=== PATIENT | male | born 1965 | race Caucasian/White ===

== ENCOUNTER 2023-01-11 02:03 | Emergency (ER) | payer OTHER ==
[~2023-01-11] VITALS: Ht 177.8 cm; Wt 95.0 kg
[2023-01-11 02:07] VITALS: TEMP 98.5
[2023-01-11 03:02] LABS: BASOPHILS % (AUTO) 0.8 % (0.0-2.0); EOSINOPHILS % (AUTO) 2.8 % (1.0-6.0); HEMATOCRIT 40.4 % (41-53); HEMOGLOBIN 13.6 g/dL (13.5-17.5); LYMPHOCYTES # (AUTO) 1.3 K/uL (1.0-4.8); LYMPHOCYTES % (AUTO) 16.8 % (22.0-44.0); MEAN CORPUSCULAR HEMOGLOBIN 31.3 pg (26.0-34.0); MEAN CORPUSCULAR HGB CONC 33.7 G/dL (31.0-37.0); MEAN CORPUSCULAR VOLUME 93 fL (80-100); MONOCYTES # (AUTO) 0.6 K/uL (0.1-1.0); MONOCYTES % (AUTO) 8.5 % (2.0-9.0); NEUTROPHILS # (AUTO) 5.4 K/uL (1.8-7.7); NEUTROPHILS % (AUTO) 71.1 % (40.0-70.0); PLATELET COUNT (AUTO) 195 K/uL (150-450); RED BLOOD CELL COUNT(AUTO) 4.36 MIL/uL (4.50-5.90); WHITE BLOOD COUNT (AUTO) 7.6 K/uL (4.5-11.0)
[2023-01-11 03:07] VITALS: BP 114/64; PULSE 65; RESP 16
[2023-01-11 03:11] LABS: CALCIUM, TOTAL 8.9 mg/dL (8.8-10.5); CREATININE 1.38 mg/dL (0.60-1.30); POTASSIUM 4.5 mmol/L (3.5-5.1)
[2023-01-11 03:17] LABS: ALBUMIN 2.2 g/dL (3.4-5.0); BILIRUBIN,TOTAL 0.8 mg/dL (0.1-1.0); TOTAL PROTEIN, SERUM 6.2 g/dL (6.4-8.2)
[2023-01-11 03:19] LABS: TROPONIN I-HIGH SENSITIVITY 23 ng/L (<76)
[2023-01-11 04:10] LABS: MAGNESIUM 2.1 mg/dL (1.80-2.40)
== END 2023-01-11 04:19 | disposition home or self-care (01) ==
LOC: EMS 02:05
DX: I48.91 Unspecified atrial fibrillation (principal)
CPT/HCPCS: 71045; 80053; 82550; 83735; 83880; 84484; 85025; 93005; 99285; 36415-L1; 36415-TC

== ENCOUNTER 2023-09-08 04:01 | Inpatient (IN) | payer OTHER ==
[~2023-09-08] VITALS: Ht 177.8 cm; Wt 136.4 kg
[2023-09-08 06:20] LABS: BASOPHILS % (AUTO) 0.5 % (0.0-2.0); EOSINOPHILS % (AUTO) 2.1 % (1.0-6.0); HEMOGLOBIN 10.9 g/dL (13.5-17.5); LYMPHOCYTES # (AUTO) 1.2 K/uL (1.0-4.8); LYMPHOCYTES % (AUTO) 10.9 % (22.0-44.0); MEAN CORPUSCULAR HEMOGLOBIN 29.2 pg (26.0-34.0); MEAN CORPUSCULAR HGB CONC 32.9 G/dL (31.0-37.0); MEAN CORPUSCULAR VOLUME 89 fL (80-100); MONOCYTES # (AUTO) 0.7 K/uL (0.1-1.0); MONOCYTES % (AUTO) 6.6 % (2.0-9.0); NEUTROPHILS # (AUTO) 9.1 K/uL (1.8-7.7); NEUTROPHILS % (AUTO) 79.9 % (40.0-70.0); PLATELET COUNT (AUTO) 229 K/uL (150-450); RED BLOOD CELL COUNT(AUTO) 3.73 MIL/uL (4.50-5.90); RED CELL DISTRIBUTION WIDTH 13.7 % (11.5-14.5); WHITE BLOOD COUNT (AUTO) 11.4 K/uL (4.5-11.0)
[2023-09-08] MEDS: ONDANSETRON HCL 4 MG/2 ML VIAL IVP ONE (07:11)
[2023-09-08] MEDS: MORPHINE SULFATE 4 MG/ML SYRINGE IVP ONE (07:11)
[2023-09-08 07:32] LABS: ANION GAP 4 mmol/L (8-16); CALCIUM, TOTAL 8.3 mg/dL (8.8-10.5); CARBON DIOXIDE 26 mmol/L (22-29); CHLORIDE 108 mmol/L (98-107); CREATININE 1.39 mg/dL (0.60-1.30); GLOMERULAR FILTR. RATE CALC 53 mL/min (>60); GLUCOSE,RANDOM 93 mg/dL (70-110); POTASSIUM 4.3 mmol/L (3.5-5.1); SODIUM SERUM 138 mmol/L (136-145); UREA NITROGEN, BLOOD 27 mg/dL (7-18)
[2023-09-08 08:14] LABS: PROTHROMBIN TIME 10.9 SEC (9.4-11.6)
[2023-09-08] MEDS: VANCOMYCIN 1.75GM/WATER(PEG) 350 ML IV ONE (09:35)
[2023-09-08 12:34] VITALS: BP 135/99; PULSE 113; RESP 18; TEMP 98
[2023-09-08] MEDS ORDERED: IPRATROPIUM BROMIDE 0.5 MG/2.5 ML NEB SOLUTION NEB PRN (14:15)
[2023-09-08] MEDS ORDERED: ONDANSETRON HCL 4 MG/2 ML VIAL IVP PRN (14:15)
[2023-09-08] MEDS ORDERED: BISACODYL 10 MG RECTAL RECTAL SUPPOSITORY PR PRN (14:15)
[2023-09-08] MEDS ORDERED: MAGNESIUM HYDROXIDE SUSPENSION 30 ML UDCUP PO PRN (14:15)
[2023-09-08] MEDS ORDERED: ALBUTEROL SULFATE 2.5 MG/0.5 ML NEB SOLUTION NEB PRN (14:15)
[2023-09-08] MEDS ORDERED: MORPHINE SULFATE 2 MG/ML SYRINGE IVP PRN (14:15)
[2023-09-08] MEDS: HYDROCODONE/ACETAMINOPHEN 5-325 MG TABLET PO PRN (16:24)
[2023-09-08] MEDS: HEPARIN SODIUM,PORCINE 5,000 UNITS/ML VIAL SQ SCH (16:24)
[2023-09-08 19:19] VITALS: BP 121/83; PULSE 90; RESP 18; TEMP 98.5
[2023-09-09] MEDS ORDERED: APIX5TAB4 PO (04:05)
[2023-09-09] MEDS ORDERED: FLUT15.812 NASAL (04:05)
[2023-09-09 04:25] VITALS: BP 127/91; PULSE 103; RESP 18; TEMP 97.7
[2023-09-09] MEDS ORDERED: SPIR50TA27 PO (04:32)
[2023-09-09] MEDS ORDERED: [UNRECOGNIZED DRUG - CODE] PO ×2 (04:32→05:08)
[2023-09-09] MEDS ORDERED: ROSU10TA72 PO (04:32)
[2023-09-09] MEDS ORDERED: METO-408 PO (04:32)
[2023-09-09] MEDS ORDERED: ACET-2895 PO (04:32)
[2023-09-09] MEDS ORDERED: LISI-663 PO (04:32)
[2023-09-09] MEDS ORDERED: HYDR-5174 PO (04:32)
[2023-09-09] MEDS ORDERED: LORA-1370 PO (04:32)
[2023-09-09] MEDS ORDERED: FURO-151 PO (04:37)
[2023-09-09] MEDS ORDERED: ACET-2247 PO (05:08)
[2023-09-09 06:39] LABS: CALCIUM, TOTAL 8.2 mg/dL (8.8-10.5); CREATININE 1.43 mg/dL (0.60-1.30)
[2023-09-09] MEDS ORDERED: SODIUM CHLORIDE 0.9% 1,000 ML ONE (07:49)
[2023-09-09 08:05] VITALS: BP 139/95; PULSE 107; RESP 20; TEMP 98.1
[2023-09-09] MEDS: VANCOMYCIN 1.75GM/WATER(PEG) 350 ML IV SCH (08:10)
[2023-09-09] MEDS: PANTOPRAZOLE SODIUM 40 MG DR TABLET PO SCH (08:10)
[2023-09-09] MEDS: FUROSEMIDE 40 MG/4 ML VIAL IVP SCH (08:10)
[2023-09-09] MEDS: LISINOPRIL 20 MG TABLET PO SCH (08:11)
[2023-09-09] MEDS: HydrALAZINE HCL 50 MG TABLET PO SCH (08:11)
[2023-09-09] MEDS: LORATADINE 10 MG TABLET PO SCH (08:11)
[2023-09-09] MEDS: METOPROLOL SUCCINATE 25 MG ER TABLET PO SCH (08:11)
[2023-09-09] MEDS: SPIRONOLACTONE 50 MG TABLET PO SCH (08:11)
[2023-09-09] MEDS: ACETAMINOPHEN 325 MG TABLET PO PRN (08:12)
[2023-09-09] MEDS: APIXABAN 5 MG TABLET PO SCH (12:55)
[2023-09-09 12:59] LABS: ALCOHOL, URINE DRUG SCREEN NEGATIVE (NEGATIVE); AMPHET/METH SCREEN,URINE NEGATIVE (NEGATIVE); BARBITURATE SCREEN, URINE NEGATIVE (NEGATIVE); BENZODIAZEPINES SCREEN,URINE NEGATIVE (NEGATIVE); CANNABINOID SCREEN,URINE NEGATIVE (NEGATIVE); COCAINE SCREEN,URINE NEGATIVE (NEGATIVE); METHADONE SCREEN, URINE NEGATIVE (NEGATIVE); OPIATE SCREEN,URINE POSITIVE (NEGATIVE); PHENCYCLIDINE SCREEN,URINE NEGATIVE (NEGATIVE)
[2023-09-09 15:42] VITALS: BP 120/78; PULSE 83; RESP 20; TEMP 98.4
[2023-09-09 19:54] VITALS: BP 154/98; PULSE 99; RESP 20; TEMP 98.4
[2023-09-09] MEDS: FLUTICASONE PROPIONATE 50 MCG/SPRAY 16 GM NASAL SPRAY NASAL SCH (20:20)
[2023-09-09] MEDS: ROSUVASTATIN CALCIUM 10 MG TABLET PO SCH (20:21)
[2023-09-10 06:00] VITALS: BP 134/101; PULSE 106; RESP 20; TEMP 98.1
[2023-09-10 07:00] LABS: BASOPHILS % (AUTO) 0.5 % (0.0-2.0); EOSINOPHILS % (AUTO) 3.6 % (1.0-6.0); HEMATOCRIT 32.6 % (41-53); HEMOGLOBIN 10.7 g/dL (13.5-17.5); LYMPHOCYTES % (AUTO) 11.7 % (22.0-44.0); MEAN CORPUSCULAR HGB CONC 32.8 G/dL (31.0-37.0); MEAN CORPUSCULAR VOLUME 88 fL (80-100); MONOCYTES # (AUTO) 0.6 K/uL (0.1-1.0); NEUTROPHILS # (AUTO) 6.6 K/uL (1.8-7.7); NEUTROPHILS % (AUTO) 77.2 % (40.0-70.0); PLATELET COUNT (AUTO) 228 K/uL (150-450); RED BLOOD CELL COUNT(AUTO) 3.69 MIL/uL (4.50-5.90); RED CELL DISTRIBUTION WIDTH 13.6 % (11.5-14.5); WHITE BLOOD COUNT (AUTO) 8.5 K/uL (4.5-11.0)
[2023-09-10 07:29] LABS: CALCIUM, TOTAL 8.4 mg/dL (8.8-10.5); CREATININE 1.32 mg/dL (0.60-1.30)
[2023-09-10] MEDS: LISINOPRIL 20 MG TABLET PO SCH (08:04)
[2023-09-10 08:49] VITALS: BP 156/94; PULSE 84; RESP 18; TEMP 97.9
[2023-09-10] MEDS ORDERED: DOXY-354 PO (11:35)
[2023-09-10] MEDS ORDERED: PANT-31 PO (11:37)
[2023-09-10] MEDS ORDERED: ALBU2.5V39 NEB (11:41)
[2023-09-10] MEDS ORDERED: BISA-151 PO (11:42)
[2023-09-10] MEDS ORDERED: MAGN-169 PO (11:45)
[2023-09-10 20:40] VITALS: BP 164/93; PULSE 85; RESP 20; TEMP 97.8
[2023-09-10] MEDS: DOXYCYCLINE HYCLATE 100 MG TABLET PO SCH (21:13)
[2023-09-11 05:08] VITALS: BP 148/90; PULSE 79; RESP 20; TEMP 98
[2023-09-11 07:31] LABS: CALCIUM, TOTAL 8.3 mg/dL (8.8-10.5); CREATININE 1.37 mg/dL (0.60-1.30); POTASSIUM 4.7 mmol/L (3.5-5.1); VANCOMYCIN,RANDOM 20.6 mcg/mL (25.0-50.0)
[2023-09-11 07:37] VITALS: BP 153/88; PULSE 102; RESP 20; TEMP 97.8
[2023-09-11] MEDS: FUROSEMIDE 40 MG TABLET PO SCH ×2 (08:17→20:43)
[2023-09-11] MEDS: VANCOMYCIN 1.25 GM/WATER(PEG) 250 ML IV ONE (09:00)
[2023-09-11 19:48] VITALS: BP 152/86; PULSE 102; RESP 20; TEMP 98.9
[2023-09-11] MEDS: ZOLPIDEM TARTRATE 5 MG TABLET PO PRN (20:47)
[2023-09-12 05:45] VITALS: BP 152/91; PULSE 91; RESP 19; TEMP 98.1
[2023-09-12 08:00] VITALS: BP 156/87; PULSE 110; RESP 18; TEMP 98.3
[2023-09-12] MEDS ORDERED: VANCOMYCIN 1.25 GM/WATER(PEG) 250 ML IV SCH (08:00)
[2023-09-12 09:17] LABS: BASOPHILS % (AUTO) 0.9 % (0.0-2.0); EOSINOPHILS % (AUTO) 6.2 % (1.0-6.0); HEMATOCRIT 35.2 % (41-53); HEMOGLOBIN 11.6 g/dL (13.5-17.5); LYMPHOCYTES % (AUTO) 14.6 % (22.0-44.0); MEAN CORPUSCULAR HEMOGLOBIN 28.9 pg (26.0-34.0); MEAN CORPUSCULAR VOLUME 88 fL (80-100); MONOCYTES # (AUTO) 0.6 K/uL (0.1-1.0); MONOCYTES % (AUTO) 8.1 % (2.0-9.0); NEUTROPHILS % (AUTO) 70.2 % (40.0-70.0); PLATELET COUNT (AUTO) 289 K/uL (150-450); RED BLOOD CELL COUNT(AUTO) 4.02 MIL/uL (4.50-5.90); RED CELL DISTRIBUTION WIDTH 13.8 % (11.5-14.5); WHITE BLOOD COUNT (AUTO) 7.1 K/uL (4.5-11.0)
[2023-09-12 09:21] LABS: CALCIUM, TOTAL 8.5 mg/dL (8.8-10.5); CREATININE 1.5 mg/dL (0.60-1.30); POTASSIUM 4.6 mmol/L (3.5-5.1)
[2023-09-12] MEDS ORDERED: FURO40 PO (10:38)
[2023-09-12] MEDS ORDERED: FLUT16SP NASAL (10:41)
== END 2023-09-12 19:00 | DRG 602 ==
LOC: EMS 04:07 → EDH 10:53 → 6N 12:05
PROVIDERS: ADMIT Hospitalist; ATTEND Hospitalist
DX: L03.116 Cellulitis of left lower limb (principal); I50.33 Acute on chronic diastolic (congestive) heart failure; Z68.41 Body mass index [BMI] 40.0-44.9, adult; I11.0 Hypertensive heart disease with heart failure; E66.01 Morbid (severe) obesity due to excess calories; N28.9 Disorder of kidney and ureter, unspecified; E78.5 Hyperlipidemia, unspecified; I48.91 Unspecified atrial fibrillation; Z79.01 Long term (current) use of anticoagulants; Z79.899 Other long term (current) drug therapy
CPT/HCPCS: 71045; 80048; 80202; 80307; 83605; 85025; 85610; 87040; 93005; 93306; 93970; 99285; J1644; J1940; J2270; J2405; J7030; Q9967; 36415-L1; 36415-TC